=== PATIENT | female | born 1975 | race Two or more races ===

== ENCOUNTER 2021-08-11 14:40 | Inpatient (IN) | payer OTHER ==
[~2021-08-11] VITALS: Ht 154.9 cm; Wt 68.0 kg
[~2021-08-11 14:40] MED LIST: COZAAR50 MG PO; FOLIC ACID PO; IRON PO; NASAL MIST126 ML
[2021-08-15] MEDS ORDERED: IRON236 MG PO (15:52)
[2021-08-15] MEDS ORDERED: FOLIC ACID0.8 M1 PO (15:52)
[2021-08-17] MEDS ORDERED: NEURONTIN600 MG PO (07:19)
[2021-08-17] MEDS ORDERED: POLY119PG PO (07:19)
[2021-08-17] MEDS ORDERED: IBUPROFEN800 MG PO (07:19)
[2021-08-17] MEDS ORDERED: SIMETHICONE125 M1 PO (07:19)
== END 2021-08-17 08:39 | disposition home or self-care (01) | DRG 743 ==
LOC: O/R 08-15 05:52 → OB/GYN 08-15 09:35
PROVIDERS: ADMIT Obstetrics & Gynecology; ATTEND Obstetrics & Gynecology
PROC: 0UT90ZZ Resection of Uterus, Open Approach (ICD-10-PCS; principal; 2021-08-15 15:30)
DX: D25.1 Intramural leiomyoma of uterus (principal); D25.2 Subserosal leiomyoma of uterus; D50.0 Iron deficiency anemia secondary to blood loss (chronic); N93.9 Abnormal uterine and vaginal bleeding, unspecified; R10.2 Pelvic and perineal pain